=== PATIENT | male | born 1960 | race Caucasian/White ===

== ENCOUNTER 2017-07-27 08:10 | Emergency (ER) | payer OTHER ==
--- NOTE | 2017-07-27 09:25 | RAD ---
HISTORY: Lt knee injury Friday COMPARISONS: None VIEWS: 4, Frontal, lateral, axial, and oblique views of the left knee FINDINGS: BONE DENSITY: Normal. BONES: There is no displaced fracture. There is a superior patellar enthesophyte. JOINTS: There is no arthropathy. There is no suprapatellar joint effusion or lipohemarthrosis. ALIGNMENT: There is no dislocation. SOFT TISSUES: Unremarkable. OTHER FINDINGS: None. IMPRESSION: NO ACUTE OSSEOUS INJURY. IF SYMPTOMS PERSIST, RECOMMEND REPEAT IMAGING.
--- NOTE | 2017-07-27 09:46 | ED ---
Lower Extremity - HPI Summary HPI Summary: Pt here w/ Lt knee pain, swelling and instability since falling Friday. He was attempting to separate his 2 dogs who accidentally got their collars tangled and in the mix, he fell, twisting his knee. Does not recall the details but has had issues since. Has tried rest, ice, elevation and ibuprofen w/o improvement he was hoping to see at this point as he has h/o ankle sprains and typically recovers with methods mentioned above. Denies numbness, tingling, weakness but is not bearing weight well. - History of Current Complaint Chief Complaint: EDExtremityLower Stated Complaint: FALL/LT LEG INJURY Time Seen by Provider: 07/27/17 08:22 Hx Obtained From: Patient, Family/Foil Spinner - Pain Intensity: 1 - Allergies/Home Medications Allergies/Adverse Reactions: Allergies Allergy/AdvReac Type Severity Reaction Status Date / Time Seasonal Allergies Allergy Eyes Uncoded 07/31/17 12:26 Itchy/Swollen/Red/Watery PMH/Surg Hx/FS Hx/Imm Hx Previously Healthy: Yes Endocrine/Hematology History: Denies: Hx Anticoagulant Therapy, Hx Blood Disorders, Hx Diabetes Cardiovascular History: Reports: Hx Hypercholesterolemia, Hx Hypertension - ON MEDS Denies: Hx Pacemaker/ICD Respiratory History: Reports: Hx Seasonal Allergies History: Denies: Hx Renal Disease Musculoskeletal History: Reports: Other Musculoskeletal History - Cervical Injury; ankle sprains Sensory History: Reports: Hx Contacts or Glasses Denies: Hx Hearing Aid Opthamlomology History: Reports: Hx Contacts or Glasses Neurological History: Reports: Hx Spinal Cord Injury - Cervical Compression Fractures Psychiatric History: Denies: Hx Panic Disorder - Surgical History Surgery Procedure, Year, and Place: GALLBLADDER, APPENDIX Infectious Disease History: No Infectious Disease History: Denies: Traveled Outside the [place] in Last 30 Days - Family History Known Family History: Positive: None - Social History Lives: With Family Alcohol Use: Daily Alcohol Amount: 1-2 glasses of wine Hx Substance Use: No Substance Use Type: Reports: None Hx Tobacco Use: No Smoking Status (MU): Never Smoked Tobacco Have You Smoked in the Last Year: No Review of Systems Constitutional: Negative Negative: Fever, Chills, Fatigue Cardiovascular: Negative Respiratory: Negative Gastrointestinal: Negative Positive: no symptoms reported Positive: Arthralgia, Myalgia, Decreased ROM, Edema Skin: Other - abrasion from fall - healing well Neurological: Negative Psychological: Normal All Other Systems Reviewed And Are Negative: Yes Physical Exam Triage Information Reviewed: Yes Vital Signs On Initial Exam: Initial Vitals Temp Pulse Resp BP Pulse Ox 97.7 F 82 18 174/88 97 07/27/17 08:11 07/27/17 08:11 07/27/17 08:11 07/27/17 08:11 07/27/17 08:11 Vital Signs Reviewed: Yes Appearance: Positive: Well-Appearing, No Pain Distress - at rest seated in wheelchair, Well-Nourished Skin: Positive: Warm, Skin Color Reflects Adequate Perfusion - no erythema, no ecchymosis about Lt knee - no skin breakdown, Dry Head/Face: Positive: Normal Head/Face Inspection Eyes: Positive: Normal ENT: Positive: Hearing grossly normal Respiratory/Lung Sounds: Positive: Breath Sounds Present Cardiovascular: Positive: Pulses are Symmetrical in both Upper and Lower Extremities. Negative: Leg Edema Left, Leg Edema Right Musculoskeletal: Positive: Strength/ROM Intact - hips, ankles, toes, Limited @ - Lt knee limited 2ndry to pain at times in certain positions, Pain @ - Lt knee w/ mild edema compared to Rt; difficult to perform special test but some laxity may be present - no shruthi positive [facility] Neurological: Positive: Normal, Sensory/Motor Intact, Alert, Oriented to Person Place, Time, CN Intact II-III Psychiatric: Positive: Normal Diagnostics - Vital Signs Vital Signs Temp Pulse Resp BP Pulse Ox 07/27/17 08:11 97.7 F 82 18 174/88 97 - Laboratory Lab Statement: Any lab studies that have been ordered have been reviewed, and results considered in the medical decision making process. Lower Extremity Course/Dx - Course Course Of Treatment: XR: no acute findings. Enthesophyte present (chronic). Suspect sprain - f/u w/ ortho - Diagnoses Provider Diagnoses: Left knee sprain Discharge - Sign-Out/Discharge Documenting (check all that apply): Discharge/Admit/Transfer - Discharge Plan Condition: Stable Disposition: HOME Patient Education Materials: Knee Sprain (ED), Crutch Instructions (ED), Knee Immobilizer (ED) Referrals: Madison Wall MD [Medical Doctor] - Additional Instructions: Contact orthopedics tomorrow Use knee immobilizer and crutches in the meantime Rest, ice, elevate and take tylenol as needed for pain as ibuprofen may interfere with your blood pressure medication - check with your PCP - Billing Disposition and Condition Condition: STABLE Disposition: Home
[2017-07-27 10:44] VITALS: BP 147/92
== END 2017-07-27 10:42 | disposition home or self-care (01) ==
LOC: ED 08:10
DX: S83.92XA Sprain of unspecified site of left knee, initial encounter (principal); W19.XXXA Unspecified fall, initial encounter; Y92.9 Unspecified place or not applicable; M25.562 Pain in left knee
CPT/HCPCS: 99282

== ENCOUNTER 2017-08-07 06:32 | Day surgery (SDC) | payer OTHER ==
[~2017-08-07 06:32] MED LIST: Buffered Lidocaine 0.9% SYRIN* 5 ML/SYR SYRINGE INTRADERM ONE; Metoclopramide IV* 5 MG/ML 2 ML VIAL IV SLOW PU ONE; Sodium Citrate/Citric Acid* 15 ML UDC PO ONE
[2017-08-07] MEDS ORDERED: Metoclopramide IV* 5 MG/ML 2 ML VIAL ONE (06:50)
[2017-08-07] MEDS ORDERED: ceFAZolin 1 GM in Dextrose (*) 1 GM/50 ML BAG IVPB ONE (06:51)
[2017-08-07] MEDS ORDERED: Sodium Citrate/Citric Acid* 15 ML UDC ONE (06:51)
[2017-08-07] MEDS ORDERED: ceFAZolin 2 GM PREMIX (*) 2 GM/50 ML BAG IVPB ONE (06:51)
[2017-08-07] MEDS ORDERED: Buffered Lidocaine 0.9% SYRIN* 5 ML/SYR SYRINGE ONE (06:51)
[2017-08-07] MEDS ORDERED: Bupivacaine 0.5% SDV PF* 30ML VIAL ONE (07:19)
[2017-08-07] MEDS ORDERED: fentaNYL* 50 MCG/ML 2 ML VIAL (100 MCG VIAL) ONE ×5 (08:00→11:24)
[2017-08-07] MEDS ORDERED: Midazolam* 1 MG/ML 2 ML VIAL (2 MG) ONE (08:00)
[2017-08-07] MEDS ORDERED: Naloxone* 0.4 MG/ML 1 ML VIAL IV PRN (08:18)
[2017-08-07] MEDS ORDERED: Ondansetron ODT TAB* 4 MG PO PRN (08:18)
[2017-08-07] MEDS ORDERED: oxyCODONE/Acetamin 5/325 MG* TAB PO PRN (08:18)
[2017-08-07] MEDS ORDERED: oxyCODONE TAB* 5 MG TAB PO PRN (08:18)
[2017-08-07] MEDS ORDERED: Acetaminophen IV 1GM/100ML * 1,000 MG/100 ML VIAL IVPB ONE (08:18)
[2017-08-07] MEDS ORDERED: PROCHLORPERAZINE INJ 5 MG/ML 2 ML VIAL IV PRN (08:18)
[2017-08-07] MEDS ORDERED: Lidocaine 2% PF * 5 ML VIAL ONE (08:45)
[2017-08-07] MEDS ORDERED: Propofol* 10 MG/ML 20 ML BTL IV PUSH ONE ×2 (08:45→09:42)
[2017-08-07] MEDS ORDERED: Ketorolac INJ* 30 MG/ML 1 ML VIAL ONE (08:45)
[2017-08-07] MEDS ORDERED: Acetaminophen IV 1GM/100ML * 100 ML ONE (10:17)
[2017-08-07] MEDS ORDERED: HYDROmorphone INJ* 0.5 MG/0.5 ML SYRINGE ONE ×6 (10:27→12:38)
[2017-08-07] MEDS: HYDROmorphone INJ* 0.5 MG/0.5 ML SYRINGE IV PRN ×6 (10:28→12:39)
[2017-08-07] MEDS: fentaNYL* 50 MCG/ML 2 ML VIAL (100 MCG VIAL) IV PRN ×5 (10:33→11:20)
[2017-08-07] MEDS ORDERED: oxyCODONE TAB* 5 MG TAB ONE (10:44)
[2017-08-07 13:04] VITALS: BP 182/78
--- NOTE | 2017-08-07 16:40 | RAD ---
Indication: Left quadriceps tendon repair. 2 views of the left knee demonstrates normal alignment of the patella relative to the femur. There is a brace in place. IMPRESSION: Quadriceps tendon repair with patella located in an appropriate location.
--- NOTE | 2017-08-08 05:44 | OP ---
OPERATIVE REPORT: DATE OF OPERATION: 08/07/17. DATE OF : [birth year]. SURGEON: Marce Barriga MD. INTEGRATED MARKETING MANAGER: JANET Hardy. Ms. Yee did help throughout the procedure with preparation of the leg, wound retraction, manipul ation of the knee and wound closure. ANESTHESIOLOGIST: Dr. Molina. ANESTHESIA: General. PRE-OP DIAGNOSIS: Left quadriceps tendon rupture. POST-OP DIAGNOSIS: Left quadriceps tendon rupture. PROCEDURE PERFORMED: Open left quadriceps tendon repair. TOURNIQUET TIME: 36 minutes. ESTIMATED BLOOD LOSS: 150 cc. COMPLICATIONS: None. SPECIMEN: None. HARDWARE: None. BRIEF HISTORY/INDICATION: Mr. Hough is a 57-year-old gentleman, who had a twist and fall injury to t he left knee within the last 2 weeks when he was caring for his dog. Since that injury, he had inabi lity to straight leg raise and severe pain with ambulation. Eventually, he was seen at [facility] emergency room and diagnosed with the quadriceps tendon rupture. He was sent to my clinic a s an outpatient. We confirmed the diagnosis of distal quadriceps rupture under ultrasound and the pa tient was given different options for treatment. He elected to proceed with surgical repair of the q uad tendon. He understood the risk of surgery, included but were not limited to bleeding, infection, damage to nearby structures, continued pain and need for further surgery, knee stiffness, loss of mo tion, patellar fracture, failure of the repair, extensor lag, stroke, heart attack, blood clot and de ath. He wished to proceed. INTRAOPERATIVE FINDINGS: Intraoperatively, the patient was noted have a near full thickness tear of the distal quadriceps tendon at the superior border of the patella. He had a large amount of tearing along the lateral vastus lateralis, retinaculum as well as the entire medial parapatellar retinaculu m. DESCRIPTION OF PROCEDURE: Mr. Hough was identified in the preanesthesia unit. His left lower extrem ity was marked as the correct operative side. Informed consent was signed and placed in the chart. The patient was taken to the operating room and placed under general anesthesia. A tourniquet was pl aced on the left thigh. The left lower extremity was prepped and draped in the usual sterile fashion. Preop time-out was made to correctly identify the patient's side and site. Appropriate perioperative antibiotics were given within one hour of incision. Tourniquet was inflated and the total tourniquet time for this procedure was 36 minutes. A 10-cm mid line incision was made with a 10 blade and carried down to the extensor mechanism. Medially, the dis tremayne quadriceps rupture was visualized. Pulse lavage, sterile saline was used to copiously irrigate t he ruptured site and the knee joint. A rongeur was used to remove any fibrotic tissue or damaged ten don from the ends of the distal quad tendon and from the superior border of the patella. A bony ridg e was obtained using the rongeur in the proximal patellar fold. Next, a #5 Ethibond was placed in a running, longitudinal fashion using the Krackow suture technique. Three #5 Ethibond were placed long itudinally in the distal quadriceps tendon with the free end left out distally. A 2.8 drill bit was then used to make 2 longitudinal tunnels beneath the patella. [employer] suture passer was used to threa d the suture end through the patellar tunnel. The suture ends were then tied under the appropriate t ension with the knee in extension. Some gentle flexion of the knee show the distal repair was quite sturdy. AP and lateral C-arm views were obtained at this point of the patella to ensure there was no significant patella baja or gian. Satisfactory placement of the patella was determined on AP and la teral views. The knee was copiously irrigated with sterile saline. Tourniquet was turned down at 36 minutes. #5 Ethibond and #1 Vicryl were used to reinforce the repair of the peripatellar retinaculum and soft tis channing along the vastus lateralis. The distal quad repair was also supplemented with some additional #5 Ethibond and #1 Vicryl. The rest of the incision was closed in a layered fashion using 0 and 2-0 Carlos ryl. Skin was closed using running 3-0 Monocryl suture and Dermabond. Sterile Adaptic, 4x4s and Webr il were placed over this. The patient was placed in a IROM brace locked in extension. His anesthesia was reversed without difficulty. He was taken to the PACU in stable condition. Intended weightbear ing will be weightbearing as tolerated with the knee locked in extension in the IROM brace. He will follow up in 2-weeks' time for wound check. He will have aspirin twice a day for DVT prophylaxis. [id number]/[facility] #: [id number]
== END 2017-08-07 13:28 | disposition home or self-care (01) ==
LOC: OR 06:32
PROVIDERS: ATTEND Orthopaedic Surgery Adult Reconstructive Orthopaedic Surgery
DX: S76.112A Strain of left quadriceps muscle, fascia and tendon, initial encounter (principal); X50.0XXA Overexertion from strenuous movement or load, initial encounter; Y93.89 Activity, other specified; Y92.89 Other specified places as the place of occurrence of the external cause; E66.01 Morbid (severe) obesity due to excess calories; Z68.35 Body mass index [BMI] 35.0-35.9, adult; I10 Essential (primary) hypertension; E78.5 Hyperlipidemia, unspecified; K21.9 Gastro-esophageal reflux disease without esophagitis; J30.2 Other seasonal allergic rhinitis
CPT/HCPCS: A9270-GY; J0690; J1170; J1885; J2250; J2704; J2765; J3010

== ENCOUNTER 2019-03-16 09:38 | Day surgery (SDC) | payer BC ==
[~2019-03-16 09:38] MED LIST changes: -Buffered Lidocaine 0.9% SYRIN* 5 ML/SYR SYRINGE INTRADERM ONE; +Buffered Lidocaine 1% SYRIN* 1 ML/SYRINGE INTRADERM ONE; +Lactated Ringers 1000 ML Bag* 1,000 ML IV SCH; -Metoclopramide IV* 5 MG/ML 2 ML VIAL IV SLOW PU ONE; -Sodium Citrate/Citric Acid* 15 ML UDC PO ONE
[2019-03-16] MEDS ORDERED: Lidocaine 2% PF * 5 ML VIAL ONE (11:29)
[2019-03-16] MEDS ORDERED: Propofol* 500 MG/50 ML BTL ONE (11:29)
[2019-03-16] MEDS ORDERED: Naloxone* 0.4 MG/ML 1 ML VIAL IV PRN (12:18)
[2019-03-16] MEDS ORDERED: Propofol* 10 MG/ML 20 ML BTL ONE (12:36)
[2019-03-16 12:43] VITALS: BP 128/70
--- NOTE | 2019-03-16 21:23 | PRO ---
DATE: 03/16/19 - [facility] REFERRING PHYSICIANS: Daniel Stafford; Hunter Cabrera* PROCEDURE: Upper gastrointestinal endoscopy and cautery snare removal, duodenal polyp third portion with clipping and subsequent CLOtest gastric antrum. 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 It was planned to remove this. He denies any change in his health status recently. He is not taking any NSAIDs other than low-dose aspirin. He has used ibuprofen sporadically but not for 2 months he states. Informed consent was obtained including knowledge of possible inability to technically perform the polypectomy and/or bleeding or admission. ENDOSCOPIST: Dr. Bowman. MEDICATIONS: Monitored anesthesia, propofol per Dr. Hebert. FINDINGS: He is a morbidly obese man, tilted up 20 degrees in supine position. EGD: Larynx - not seen. Esophagus - normal with EG junction at 40. There were no abnormalities. Stomach - generally normal mucosa with limited viewed from the cardia, fundus, body, and antrum. Duodenum - patches of white superficial exudates involving the distal bulb and some of the second portion and then in the third portion, there was some mild erythema on the tips of folds. The previously seen polyp well away from the papilla on the opposite wall couple of centimeters more proximal was noted. It was positioned to 7 o'clock and could be easily removed with snare. It was removed with 25 degroot briefly. The polyp was then removed with the retrieval net. Reintubation encountered just minimal amount of blood splatter in the third portion of the duodenum. A clip was applied across the polypectomy site with a 30-degree angle during deployment. Deployment appeared optimal. There was no subsequent bleeding. It actually stopped and the clip was prophylactic given the location and the erythema. Coming out, a CLOtest was taken in the mid gastric body. IMPRESSION: 1. Duodenitis - source unclear and a repeat CLOtest done. 2. Duodenal polyp - removed and retrieved and prophylactic clip placed. The area should be reviewed again in 6 months and then at subsequent longer intervals. Addendum: villous adenoma as planned to recheck in 5 to 6 months Clotest negative [id number]/[facility] #: [id number] [facility]
== END 2019-03-16 12:45 | disposition home or self-care (01) ==
LOC: OR 09:38
PROVIDERS: ATTEND Internal Medicine Gastroenterology
DX: D37.2 Neoplasm of uncertain behavior of small intestine (principal); K29.80 Duodenitis without bleeding; E66.01 Morbid (severe) obesity due to excess calories; Z68.39 Body mass index [BMI] 39.0-39.9, adult; K21.9 Gastro-esophageal reflux disease without esophagitis; I10 Essential (primary) hypertension; G47.33 Obstructive sleep apnea (adult) (pediatric)
CPT/HCPCS: 87077; 88305; J2704

== ENCOUNTER 2019-04-14 07:31 | Inpatient (IN) | payer BC ==
[~2019-04-14 07:31] MED LIST changes: +Dexamethasone IV* 4 MG/ML 1 ML (4 MG) IV SLOW PU ONE; +DiMENhydriNATE IV* 50 MG/ML VIAL IV PUSH PRN; +Famotidine IV* 10 MG/ML 2 ML (20 mg) IV ONE; +Levalbuterol 0.63MG/3ML NEB* UNIT OF USE INH ONE; +Naloxone* 0.4 MG/ML 1 ML VIAL IV PRN; +Ondansetron INJ* 2 MG/ML VIAL IV ONE; +PROCHLORPERAZINE INJ 5 MG/ML 2 ML VIAL IV PRN
--- OUTSIDE RECORDS SUMMARY | 2019-04-14 07:35 | XMS REPORT | Continuity of Care Document ---
:1960 External Reference #:[id number] Author Name Rahul Caceres M.D. (transmitted by agent of provider Chula Isaac) Address [address] [place] [address] Problems Active Problems Provider Date Gastroesophageal reflux disease Eleni Lopez NP Onset: 01/28/2019 Open wound of hip AND thigh with tendon Marce Barriga M.D. 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; Social History Type Date Description Comments Sex Unknown Tobacco Use Start: Unknown Never Smoked Cigarettes Smoking Status Reviewed: 02/19/19 Never Smoked Cigarettes ETOH Use Drinks 1 Alcoholic Beverage Per Day Tobacco Use Start: Unknown Patient has never smoked Recreational Drug Use Never Used Drugs Exercise Type/Frequency Exercises regularly three times weekly Allergies, Adverse Reactions, Alerts Active Allergies Reaction Severity Comments Date NKDA 07/28/2017 Hay Fever 02/17/2019 Medications Active Medications SIG Qnty Indications Ordering Date Provider Viagra Take 1 Tablet By Unknown 100mg Tablets Mouth 30 To 60 Minutes Before [place] as Needed Amlodipine Besylate Take 1 Tablet By Unknown 5mg Mouth Every Day For Tablets Blood Pressure Rosuvastatin Calcium Take 1 Tablet By Unknown Mouth Every Day 10mg Tablets Omeprazole Take 1 Capsule By Unknown 40mg Mouth Every Morning Capsules Atenolol Take 1 Tablet By Unknown 50mg Tablets Mouth Every Day Benazepril HCL 1 by mouth every day Unknown 40mg Tablets Aspirin 81 1 by mouth every day Unknown 81mg Tablets DR Benson HFA Inhale 2 Puffs By Unknown Mouth Every 4 Hours 108(90Base) mcg/Act as Needed Aerosol One Daily For Men 50+ 1 daily Unknown Advanced Men 50+ Tablets Immunizations Description No Information Available Vital Signs Date Vital Result Comment 02/19/2019 9:50am Height 75 inches 6'3" Weight 313.25 lb Heart Rate 64 /min BP Systolic 139 mmHg BP Diastolic 79 mmHg Respiratory Rate 14 /min O2 % BldC Oximetry 96 % BMI (Body Mass Index) 39.1 kg/m2 02/17/2019 2:27pm Height 75 inches 6'3" Weight 314.00 lb with shoes Heart Rate 76 /min BP Systolic 152 mmHg Rue BP Diastolic 80 mmHg Rue BP Systolic Sitting 146 mmHg Lue BP Diastolic Sitting 80 mmHg Lue BP Systolic Standing 144 mmHg Lue BP Diastolic Standing 80 mmHg Lue BP Systolic Lying Down 138 mmHg la repeat sitting BP Diastolic Lying Down 68 mmHg la repeat sitting BMI (Body Mass Index) 39.2 kg/m2 Results Test Acquired Date Facility Test Result H/L Range Note Order 02/19/2019 [facility] Echocardiogram <pending> [address] [place] [address] [phone] Surgical 02/16/2019 [facility] Surgical Pathology SEE RESULT [address] [place] [address] [phone] PDFReport SEE IMAGE Laboratory test 02/16/2019 [facility] Clotest SEE RESULT BELOW [address] [place] [address] [phone] 1 SEE RESULT BELOW Name: JAVAD DACOSTA SR : [address]: Kobe Bowman MD Acct: [id number] Unit: [id number] AGE: 58 Location: [facility] Re02/16/19 SEX: M Status: REG REF SPEC: [id number] JASE: 02/16/19-[address] [facility] [address]: Kobe Bowman MD REQ: [id number] RECD: 02/16/19 STATUS: WIL JONES DR: Daniel Cabrera MD _ ORDERED: LEVEL 4 FINAL DIAGNOSIS Duodenum, biopsy: -- Tubular adenoma. -- No high grade dysplasia or malignancy. CLINICAL HISTORY Gastric bypass POST-OPERATIVE DIAGNOSIS EGD: larynx - symmetric; esophagus - normal esophagogastric 45 cm; minimal looseness - no erosions; stomach - whispy red; mild; no blood; duodenum - bulb; normal; second portion polyps; biopsy (4); conclusions: normal esophagus; gastritis; duodenal polyp ; obesity - sleeve GROSS DESCRIPTION The specimen is received in formalin labeled, Biopsy Duodenal Polyp, and consists of a 1.5 x 0.5 x 0.3 cm aggregate of red-pink irregular to polypoid soft tissue fragments, which is entirely submitted in one cassette. Signed by and Reported on: Edita Huerta MD 02/17/19 1343 END OF REPORT DEPARTMENT OF PATHOLOGY, [address] [place] [address] Ayo Kowalski M.D. Director [facility] # [id number] 2 SEE RESULT BELOW Name: JAVAD DACOSTA SR : [address]: Kobe Bowman MD Acct: [id number] Unit: [id number] AGE: 58 Location: ENDO Re02/16/19 SEX: M Status: REG REF SPEC: [id number] JASE: 02/16/19-[address] [facility] [address]: Kobe Bowman MD REQ: [id number] RECD: 02/16/19 STATUS: URSULA JONES DR: Daniel Stafford MD _ SOURCE: GAS ANTRUM SPDESC: ORDERED: Clotest Procedure Result Reported Site Clotest Final 02/17/19- 08 [facility] Clotest Negative * ML - Main Lab . END OF REPORT DEPARTMENT OF PATHOLOGY, [address] [place] [address] Ayo Kowalski M.D. Director [facility] # [id number] Procedures Date Code Description Status 02/19/2019 08704 ECHO Transthoracic, Real-Time 2D With Doppler And Color Completed Flow 02/17/2019 57381 EKG Tracing & Interpretation Completed 12/16/2018 62977 Sleep Study Unattended,HRT Rate,Oxygen Sat,Resp Completed Effort/Airflow Medical Devices Description No Information Available Encounters Type Date Location Provider Dx Diagnosis Office Visit 02/12/2019 [facility] G47.33 Obstructive sleep 11:30a [facility] Zhu apnea (adult) [facility] (pediatric) E66.9 Obesity, unspecified Z68.38 Body mass index (BMI) 38.0-38.9, adult Office 01/28/2019 [facility] Gastroenter[facility] Eleni K21.9 Gastro-esophageal Visit 9:15a Edita reflux disease [facility] Lopez without esophagitis E66.9 Obesity, unspecified Z01.818 Encounter for other preprocedural examination Z68.36 Body mass index (BMI) 36.0-36.9, adult Office Visit 12/12/2018 9:00a [facility] Pratibha Dubose, R06.83 [facility] E66.9 Obesity, unspecified Z68.36 Body mass index (BMI) 36.0-36.9, adult Office Visit 10/02/2018 10:15a [facility] Marce Barriga, M25.562 Pain in left at [facility].D. knee M25.462 Effusion, left knee M17.12 Unilateral primary osteoarthritis, left knee S76.122D Laceration of left quadriceps musc/fasc/tend, subs Office Visit 09/11/2018 9:15a [facility] Marce Barriga, M25.562 Pain in left at [place] M.D. knee M25.462 Effusion, left knee S76.122D Laceration of left quadriceps musc/fasc/tend, subs Assessments Date Code Description Provider 02/19/2019 K31.7 Polyp of stomach and duodenum Kobe Bowman MD 02/19/2019 R94.31 Abnormal electrocardiogram [ECG] [EKG] [facility] 02/19/2019 R94.31 Abnormal electrocardiogram [ECG] [EKG] Kobe Bowman MD 02/19/2019 Z68.38 Body mass index (BMI) 38.0-38.9, adult Kobe Bowman MD 02/17/2019 R94.31 Electrocardiogram abnormal Rahul Caceres M.D. 02/17/2019 E78.5 Hyperlipidemia Rahul Caceres M.D. 02/17/2019 I10 Benign hypertension Rahul Caceres M.D. 02/17/2019 Z68.38 Body mass index (BMI) 38.0-38.9, adult Rahul Caceres M.D. 02/12/2019 G47.33 Obstructive sleep apnea (adult) [facility] Zhu NP (pediatric) 02/12/2019 E66.9 Obesity, unspecified [facility] Zhu NP 02/12/2019 Z68.38 Body mass index (BMI) 38.0-38.9, adult [facility] Zhu NP 01/28/2019 K21.9 Gastro-esophageal reflux disease Eleni Lopez NP without esophagitis 01/28/2019 E66.9 Obesity, unspecified Eleni Lopez NP 01/28/2019 Z01.818 Encounter for other preprocedural Eleni Lopez NP examination 01/28/2019 Z68.36 Body mass index (BMI) 36.0-36.9, adult Eleni Lopez NP 12/16/2018 G47.33 Obstructive sleep apnea (adult) Pratibha Dubose MD (pediatric) 12/12/2018 R06.83 Snoring Pratibha Dubose MD 12/12/2018 E66.9 Obesity, unspecified Pratibha Dubose MD 12/12/2018 Z68.36 Body mass index (BMI) 36.0-36.9, adult Pratibha Dubose MD 10/02/2018 M25.562 Pain in left knee Marce Barriga M.D. 10/02/2018 M25.462 Effusion, left knee Marce Barriga M.D. 10/02/2018 M17.12 Unilateral primary osteoarthritis, Marce Barriga M.D. left knee 10/02/2018 S76.122D Laceration of left quadriceps muscle, Marce Barriga M.D. fascia and tendon, sub 09/11/2018 M25.562 Pain in left knee Kavya HastingsD. 09/11/2018 M25.462 Effusion, left knee Marce Barriga M.D. 09/11/2018 S76.122D Laceration of left quadriceps muscle, Marce aBrriga M.D. fascia and tendon, sub Plan of Treatment Future Appointment(s):03/18/2019 2:15 pm - Kobe Bowman MD at [facility] Bdemxsnqzmywvqiw05/16/2020 10:30 am - Rahul Caceres M.D. at [facility]05/14/2019 9:30 am - Madison Zhu NP at [facility]03/04/2019 2:15 pm - Kobe Bowman MD at [facility] Lbagludptlpckexz71/10/2020 - Kobe Bowman MDK31.7 Polyp of stomach and duodenumFollow up:3-4 weeks appt in office - to be deferred if cardiac w/u dwtpnehhpA65.31 Abnormal electrocardiogram [ECG] [EKG]Follow up:3-4 weeks appt in office - to be deferred if cardiac w/u [id number] Body mass index (BMI) 38.0-38.9, adultFollow up:3-4 weeks appt in office - to be deferred if cardiac w /u continues Functional Status Description No Information Available Mental Status Description No Information Available Referrals Description No Information Available
--- OUTSIDE RECORDS SUMMARY | 2019-04-14 07:35 | XMS REPORT | Continuity of Care Document ---
:1960 External Reference #:[id number] Author Name Rahul Caceres M.D. (transmitted by agent of provider Kristy Taylor ) Address [address] [facility] [address] [place] [address] Problems Active Problems Provider Date Gastroesophageal reflux disease Eleni Lopez NP Onset: 01/28/2019 Open wound of hip AND thigh with tendon Marce Barriga M.D. Onset: 07/28/2017 involvement Obesity Eleni Lpoez NP Onset: 01/28/2019 Obstructive sleep apnea syndrome Eleni Lopez NP Onset: 01/28/2019 Social History Type Date Description Comments Sex Unknown Tobacco Use Start: Unknown Never Smoked Cigarettes Smoking Status Reviewed: 02/17/19 Never Smoked Cigarettes ETOH Use Currently consumes 14 drinks a week alcohol per Pt. Tobacco Use Start: Unknown Patient has never smoked Recreational Drug Use Never Used Drugs Exercise Type/Frequency Exercises regularly three times weekly Allergies, Adverse Reactions, Alerts Active Allergies Reaction Severity Comments Date NKDA 07/28/2017 Hay Fever 02/17/2019 Medications Active Medications SIG Qnty Indications Ordering Date Provider Viagra Take 1 Tablet By Unknown 100mg Tablets Mouth 30 To 60 Minutes Before [place] as Needed Amlodipine Besylate Take 1 Tablet By Unknown 5mg Mouth Every Day For Tablets Blood Pressure Rosuvastatin Calcium Take 1 Tablet By Unknown Mouth Every Day 10mg Tablets Omeprazole Take 1 Capsule By Unknown 40mg Mouth Every Morning Capsules DR Atenolol Take 1 Tablet By Unknown 50mg Tablets Mouth Every Day Benazepril HCL 1 by mouth every day Unknown 40mg Tablets Aspirin 81 1 by mouth every day Unknown 81mg Tablets DR Benson HFMarybeth Inhale 2 Puffs By Unknown Mouth Every 4 Hours 108(90Base) mcg/Act as Needed Aerosol One Daily For Men 50+ 1 daily Unknown Advanced Men 50+ Tablets Immunizations Description No Information Available Vital Signs Date Vital Result Comment 02/17/2019 2:27pm Height 75 inches 6'3" Weight 314.00 lb with shoes Heart Rate 76 /min BP Systolic 152 mmHg Rue BP Diastolic 80 mmHg Rue BP Systolic Sitting 146 mmHg Lue BP Diastolic Sitting 80 mmHg Lue BP Systolic Standing 144 mmHg Lue BP Diastolic Standing 80 mmHg Lue BMI (Body Mass Index) 39.2 kg/m2 02/12/2019 9:07am Height 75 inches 6'3" Weight 310.25 lb Heart Rate 70 /min BP Systolic Sitting 120 mmHg Lue large cuff BP Diastolic Sitting 70 mmHg Lue large cuff O2 % BldC Oximetry 95 % On Ra BMI (Body Mass Index) 38.8 kg/m2 Results Test Acquired Date Facility Test Result H/L Range Note Surgical 02/16/2019 [facility] Surgical SEE RESULT [address] [place] [address] [phone] PDFReport SEE IMAGE Laboratory test 02/16/2019 [facility] Clotest SEE RESULT BELOW [address] [place] [address] [phone] 1 SEE RESULT BELOW Name: PRANEETH SRJAVAD Margaux : [address]: Kobe Bomwan MD Acct: [id number] Unit: [id number] AGE: 58 Location: ENDO Re02/16/19 SEX: M Status: REG REF SPEC: [id number] JASE: 02/16/19-[address] [facility] [address]: Kobe Bowman MD REQ: [id number] RECD: 02/16/19 STATUS: WIL JONES DR: Daniel [...] 1343 END OF REPORT DEPARTMENT OF PATHOLOGY, [address] [place] [address] Ayo Kowalski M.D. Director [facility] # [id number] 2 SEE RESULT BELOW Name: JAVAD DACOSTA SR : [address]: Kobe Bowman MD Acct: [id number] Unit: [id number] AGE: 58 Location: ENDO Re02/16/19 SEX: M Status: REG REF SPEC: [id number] JASE: 02/16/19-[address] [facility] [address]: Kobe Bowman MD REQ: [id number] RECD: 02/16/19 STATUS: URSULA JONES DR: Daniel Stafford MD _ SOURCE: GAS ANTRUM SPDESC: ORDERED: Clotest Procedure Result Reported Site Clotest Final 02/17/19- 805 ML Clotest Negative * ML - Main Lab . END OF REPORT DEPARTMENT OF PATHOLOGY, [address] [place] [address] Ayo Kowalski M.D. Director [facility] # [id number] Procedures Date Code Description Status 02/17/2019 97230 EKG Tracing & Interpretation Completed 12/16/2018 17948 Sleep Study Unattended,HRT Rate,Oxygen Sat,Resp Completed Effort/Airflow Medical Devices Description No Information Available Encounters Type Date Location Provider Dx Diagnosis Office Visit 02/12/2019 [facility] G47.33 Obstructive sleep 11:30a [facility] apnea (adult) [facility] (pediatric) E66.9 Obesity, unspecified Z68.38 Body mass index (BMI) 38.0-38.9, adult Office 01/28/2019 [facility] Gastroenterology Eleni K21.9 Gastro-esophageal Visit 9:15a Edita reflux disease [facility] Lopez without esophagitis E66.9 Obesity, unspecified Z01.818 Encounter for other preprocedural examination Z68.36 Body mass index (BMI) 36.0-36.9, adult Office Visit 12/12/2018 9:00a [facility] Pratibha Dubose, R06.83 [facility] E66.9 Obesity, unspecified Z68.36 Body mass index (BMI) 36.0-36.9, adult Office Visit 10/02/2018 10:15a [facility] Marceotto Barriga, M25.562 [facility] M25.462 Effusion, left knee M17.12 Unilateral primary osteoarthritis, left knee S76.122D Laceration of left quadriceps musc/fasc/tend, subs Office Visit 09/11/2018 9:15a [facility] Marce Barriga, M25.562 [facility] M25.462 Effusion, left knee S76.122D Laceration of left quadriceps musc/fasc/tend, subs Assessments Date Code Description Provider 02/17/2019 R94.31 Electrocardiogram abnormal Rahul Caceres M.D. [...] sub 09/11/2018 M25.562 Pain in left knee Marce Barriga M.D. 09/11/2018 M25.462 Effusion, left knee Marce Barriga M.D. 09/11/2018 S76.122D Laceration of left quadriceps muscle, Marce Barriga M.D. fascia and tendon, sub Plan of Treatment Future Appointment(s):02/19/2019 8:00 am - [place] [facility] Schedule at [facility]05/14/2019 9:30 am - [place] Zhu NP at [facility]03/04/2019 2:15 pm - Kobe Bowman MD at [facility] Cckkimybjwpselly47/08/2020 - Rahul Caceres M.D.R94.31 Electrocardiogram abnormalNew Orders:Echocardiogram, Scheduled: 02/19/19[facility] Nuclear Myoview, Ordered: 02/17/19E78.5 OscptufzvnrgeiO42 Benign xtzphvneegkxO64.38 Body mass index (BMI) 38.0-38.9, adult Functional Status Description No Information Available Mental Status Description No Information Available Referrals Description No Information Available
--- OUTSIDE RECORDS SUMMARY | 2019-04-14 07:35 | XMS REPORT | Continuity of Care Document ---
:1960 External Reference #:[id number] Author Name Kobe Bowman MD (transmitted by agent of provider Juany Wilde) Address [address] [place] [address] Problems Active Problems Provider Date Gastroesophageal reflux disease Eelni Lopez NP Onset: 01/28/2019 Open wound of [...] Tablets Mouth 30 To 60 Minutes Before [place] as Needed Amlodipine Besylate Take 1 Tablet [...] mouth every day Unknown 81mg Tablets DR Ventolin HFA Inhale 2 Puffs By Unknown Mouth [...] Test Result H/L Range Note Order 02/19/2019 [facility] Echocardiogram <pending> [address] [facility] [address] [place] [address] [phone] Surgical 02/16/2019 [facility] Surgical Pathology SEE RESULT [address] [place] [address] [phone] PDFReport SEE IMAGE Laboratory test 02/16/2019 [facility] Clotest SEE RESULT BELOW [address] [place] [address] [phone] 1 SEE RESULT BELOW Name: JAVAD DACOSTA SR : [address]: Kobe Bowman MD Acct: [id number] Unit: [id number] AGE: 58 Location: ENDO Re02/16/19 SEX: M Status: REG REF SPEC: [id number] JASE: 02/16/19-[address] [facility] [address]: Kobe Bowman MD REQ: [id number] RECD: 02/16/19 STATUS: WIL JONES DR: Daniel [...] 1343 END OF REPORT DEPARTMENT OF PATHOLOGY, [address] [place] [address] Ayo Kowalski M.D. Director [facility] # [id number] 2 SEE RESULT BELOW Name: JAVAD DACOSTA SR : [address]: Kobe Bowman MD Acct: [id number] Unit: [id number] AGE: 58 Location: ENDO Re02/16/19 SEX: M Status: REG REF SPEC: [id number] JASE: 02/16/19-[address]: Kobe Bowman MD REQ: [id number] RECD: 02/16/19-1722 STATUS: URSULA ELIASHR DR: Daniel Stafford MD _ SOURCE: GAS ANTRUM SPDESC: ORDERED: Clotest Procedure Result Reported Site Clotest Final 02/17/19- 805 ML Clotest Negative * ML - Main Lab . END OF REPORT DEPARTMENT OF PATHOLOGY, [address] [place] [address], [place] [address] Ayo Kowalski M.D. Director [facility] # [id number] Procedures Date Code Description Status 02/19/2019 17044 ECHO Transthoracic, Real-Time 2D With Doppler And Color Completed Flow 02/17/2019 80767 EKG Tracing & Interpretation Completed 12/16/2018 09299 Sleep Study Unattended,HRT Rate,Oxygen Sat,Resp Completed Effort/Airflow Medical Devices Description No Information Available Encounters Type Date Location Provider Dx Diagnosis Office Visit 02/19/2019 [facility] Gastroenterology Kobe Guillen K31.7 Polyp of stomach 10:15a MD [place] and duodenum R94.31 Abnormal electrocardiogram [ECG] [EKG] Z68.38 Body mass index (BMI) 38.0-38.9, adult Office Visit 02/12/2019 [facility] G47.33 Obstructive sleep 11:30a [facility] apnea (adult) [facility] (pediatric) E66.9 Obesity, unspecified Z68.38 Body mass index (BMI) 38.0-38.9, adult Office 01/28/2019 [facility] Gastroenterology Eleni K21.9 Gastro-esophageal Visit 9:15a Edita reflux disease SHAR[facility] Lopez without esophagitis E66.9 Obesity, unspecified Z01.818 Encounter for other preprocedural examination Z68.36 Body mass index (BMI) 36.0-36.9, adult Office Visit 12/12/2018 9:00a [facility] Pratibha Dubose, R06.83 [facility] E66.9 Obesity, unspecified Z68.36 Body mass index (BMI) 36.0-36.9, adult Office Visit 10/02/2018 10:15a [facility] Marce Barriga, M25.562 Pain in left at [place] M.D. knee M25.462 Effusion, left knee M17.12 Unilateral primary osteoarthritis, left knee S76.122D Laceration of left quadriceps musc/fasc/tend, subs Office Visit 09/11/2018 9:15a [facility] Marce Barriga, M25.562 Pain in left at [place] M.DJena knee M25.462 Effusion, left knee S76.122D Laceration [...] 2:15 pm - Kobe Bowman MD at [facility] Jzlqvrkznricdcsb51/16/2020 10:30 am - Rahul Caceres M.D. at [facility]05/14/2019 9:30 am - [place] Zhu NP at [facility]03/04/2019 2:15 pm - Kobe Bowman MD at [facility] Owjqpqrfxsaswbrp00/10/2020 - Kobe Bowman MDK31.7 Polyp of stomach and duodenumFollow up:3-4 weeks appt in rqzkrsS90.31 Abnormal electrocardiogram [ECG ] [EKG]Follow up:3-4 weeks appt in kpwuhsV84.38 Body mass index (BMI) 38.0-38.9 , adultFollow up:3-4 weeks appt in office Functional Status Description No Information Available Mental Status Description No Information Available Referrals Description No Information Available
--- OUTSIDE RECORDS SUMMARY | 2019-04-14 07:35 | XMS REPORT | Continuity of Care Document ---
:1960 External Reference #:[id number] Author Name Kobe Bowman MD (transmitted by agent of provider Tyrese Ortiz) Address [address] [place] [address] Problems Active Problems Provider Date Gastroesophageal reflux [...] Unknown Never Smoked Cigarettes Smoking Status Reviewed: 03/04/19 Never Smoked Cigarettes ETOH Use Drinks 1 Alcoholic Beverage Per Day Tobacco Use Start: Unknown Patient has never smoked Recreational Drug Use Never Used Drugs Exercise Type/Frequency Exercises regularly three times weekly Allergies, Adverse Reactions, Alerts Active Allergies Reaction Severity Comments Date NKDA 07/28/2017 Hay Fever 02/17/2019 Medications Active Medications SIG Qnty Indications Ordering Date Provider Amlodipine Besylate Take 1 Tablet By Unknown 05/01/2013 5mg Mouth Every Day For Tablets Blood Pressure Benazepril HCL 1 by mouth every day Unknown 04/20/2013 40mg Tablets Atenolol Take 1 Tablet By Unknown 02/12/2011 50mg Tablets Mouth Every Day Rosuvastatin Calcium Take 1 Tablet By Unknown 03/23/2009 Mouth Every Day 10mg Tablets Omeprazole Take 1 Capsule By Unknown 03/23/2009 40mg Mouth Every Morning Capsules Aspirin 81 1 by mouth every day Unknown 05/21/2005 81mg Tablets Viagrdavid Take 1 Tablet By Unknown 100mg Tablets Mouth 30 To 60 Minutes Before [place] as Needed Ventolin HFA Inhale 2 Puffs By Unknown Mouth Every 4 Hours 108(90Base) mcg/Act as Needed Aerosol One Daily For Men 50+ 1 daily Unknown Advanced Men 50+ Tablets Immunizations Description No Information Available Vital Signs Date Vital Result Comment 03/04/2019 2:43pm Height 75 inches 6'3" Weight 315.50 lb Heart Rate 64 /min BP Systolic 138 mmHg BP Diastolic 76 mmHg Respiratory Rate 18 /min O2 % BldC Oximetry 96 % BMI (Body Mass Index) 39.4 kg/m2 02/19/2019 9:50am Height 75 inches 6'3" Weight 313.25 lb Heart Rate 64 /min BP Systolic 139 mmHg BP Diastolic 79 mmHg Respiratory Rate 14 /min O2 % BldC Oximetry 96 % BMI (Body Mass Index) 39.1 kg/m2 Results Test Acquired Date Facility Test Result H/L Range Note Surgical 02/16/2019 [facility] Surgical SEE RESULT [address] [place] [address] [phone] PDFReport SEE IMAGE Laboratory test 02/16/2019 [facility] Clotest SEE RESULT BELOW [address] [place] [address] [phone] 1 SEE RESULT BELOW Name: JAVAD DACOSTA SR : [address]: Kobe Bowman MD Acct: [id number] Unit: [id number] AGE: 58 Location: ENDO Re02/16/19 SEX: M Status: REG REF SPEC: [id number] JASE: 02/16/19-1555 [facility] DR: Kobe Bowman MD REQ: [id number] RECD: 02/16/198244 STATUS: WIL JONES DR: Daniel Caberra MD _ ORDERED: LEVEL 4 FINAL DIAGNOSIS [...] 1343 END OF REPORT DEPARTMENT OF PATHOLOGY, [address] [place] [address] Ayo Kowalski M.D. Director [facility] # [id number] 2 SEE RESULT BELOW Name: PRANEETH BROWN,JAVAD Damico : [address]: Kobe Bowman MD Acct: [id number] Unit: [id number] AGE: 58 Location: ENDO Re02/16/19 SEX: M Status: REG REF SPEC: [id number] JASE: 02/16/19-1522 [facility] DR: Kobe Bowman MD REQ: [id number] RECD: 02/16/19 STATUS: URSULA JONES DR: Daniel Stafford MD _ SOURCE: GAS ANTRUM SPDESC: ORDERED: Clotest Procedure Result Reported Site Clotest Final 02/17/19- 0806 ML Clotest Negative * ML - Main Lab . END OF REPORT DEPARTMENT OF PATHOLOGY, [address], [place], [place] [address] Ayo Kowalski M.D. Director [facility] # [id number] Procedures Date Code Description Status 02/25/2019 38063 Treadmill Interp/Report Only Completed 02/25/2019 08694 Stress Test Supervsn W/Out I/R Completed 02/19/2019 48267 ECHO Transthoracic, Real-Time 2D With Doppler And Color Completed Flow 02/19/2019 45229 ECHO Transthoracic, Real-Time 2D With Doppler And Color Completed Flow 02/17/2019 86789 EKG Tracing & Interpretation Completed 12/16/2018 04249 Sleep Study Unattended,HRT Rate,Oxygen Sat,Resp Completed Effort/Airflow Medical Devices Description No Information Available Encounters Type Date Location Provider Dx Diagnosis Office Visit 02/19/2019 [facility] Gastroenterology Kobe Guillen K31.7 Polyp of stomach 10:15a MD [place] and duodenum R94.31 Abnormal electrocardiogram [ECG] [EKG] Z68.38 Body mass index (BMI) 38.0-38.9, adult Office Visit 02/17/2019 Kylah oJhnson R94.31 Abnormal 3:00p Cardiology Do Caceres electrocardiogram [ECG] [EKG] E78.5 Hyperlipidemia, unspecified I10 Essential (primary) hypertension Z01.810 Encounter for preprocedural cardiovascular examination I51.7 Cardiomegaly Office Visit 02/12/2019 [facility] [place] G47.33 Obstructive sleep 11:30a [facility] apnea (adult) [facility] (pediatric) E66.9 Obesity, unspecified Z68.38 Body mass index (BMI) 38.0-38.9, adult Office 01/28/2019 [facility] Gastroenterology Eleni K21.9 Gastro-esophageal Visit 9:15a Edita reflux disease SHARON Lopez without esophagitis E66.9 Obesity, unspecified Z01.818 Encounter for other preprocedural examination Z68.36 Body mass index (BMI) 36.0-36.9, adult Office Visit 12/12/2018 9:00a [facility] Pratibha Dubose, R06.83 [facility] E66.9 Obesity, unspecified Z68.36 Body mass index (BMI) 36.0-36.9, adult Office Visit 10/02/2018 10:15a [facility] Marce Linus, M25.562 Pain in left at [place] M.D. knee M25.462 Effusion, left knee M17.12 Unilateral primary osteoarthritis, left knee S76.122D Laceration of left quadriceps musc/fasc/tend, subs Office Visit 09/11/2018 9:15a [facility] Marce Weldonke, M25.562 Pain in left at [facility].D. knee M25.462 Effusion, left knee S76.122D Laceration of left quadriceps musc/fasc/tend, subs Assessments Date Code Description Provider 03/04/2019 K31.7 Polyp of stomach and duodenum Kobe Bowman MD 03/04/2019 K21.9 Gastro-esophageal reflux disease Kobe Bowman MD without esophagitis 03/04/2019 E66.9 Obesity, unspecified Kobe Bowman MD 03/04/2019 I10 Benign hypertension Kobe Bowman MD 03/04/2019 G47.33 Obstructive sleep apnea (adult) Kobe Bowman MD (pediatric) 02/19/2019 R94.31 Abnormal electrocardiogram [ECG] [EKG] Rahul Caceres M.D. 02/19/2019 K31.7 Polyp of stomach and duodenum Kobe Bowman MD 02/19/2019 R94.31 Abnormal electrocardiogram [ECG] [EKG] [place] [facility] Schedule 02/19/2019 I10 Benign hypertension [place] [facility] Schedule 02/19/2019 R94.31 Abnormal electrocardiogram [ECG] [EKG] Kobe Bowman MD 02/19/2019 G47.33 Obstructive sleep apnea (adult) [place] [facility] Schedule (pediatric) 02/19/2019 Z68.38 Body mass index (BMI) 38.0-38.9, adult Kobe Bowman MD 02/17/2019 R94.31 Electrocardiogram abnormal Rahul Caceres M.D. 02/17/2019 E78.5 Hyperlipidemia Rahul Caceres M.D. 02/17/2019 I10 Benign hypertension Rahul Caceres M.D. 02/17/2019 Z01.810 Encounter for preprocedural Rahul Caceres M.D. cardiovascular examination 02/17/2019 I51.7 Cardiomegaly Rahul Caceres M.D. 02/12/2019 G47.33 Obstructive sleep [...] and tendon, sub Plan of Treatment Future Appointment(s):05/14/2019 9:30 am - [place] Zhu, [employer] at [facility]03/04/2019 - Kobe Bowman MDK31.7 Polyp of stomach and duodenumNew Orders:EGD, Ordered: 03/04/19Follow up:Will ask for anesthesia assistance as duration of procedure less predictable - to include retrieval.He will continue aspirin.K21.9 Gastro-esophageal reflux disease without esophagitisFollow up:Will ask for anesthesia assistance as duration of procedure less predictable - to include retrieval.He will continue aspirin.E66.9 Obesity, unspecifiedFollow up:Will ask for anesthesia assistance as duration of procedure less predictable - to include retrieval.He will continue aspirin.I10 Essential (primary) hypertensionFollow up:Will ask for anesthesia assistance as duration of procedure less predictable - to include retrieval.He will continue aspirin.G47.33 Obstructive sleep apnea (adult) ( pediatric)Follow up:Will ask for anesthesia assistance as duration of procedure less predictable - to include retrieval.He will continue aspirin. Functional Status Description No Information Available Mental Status Description No Information Available Referrals Description No Information Available
[2019-04-14] MEDS ORDERED: Bupivacaine 0.25% SDV* 30 ML ONE (08:11)
[2019-04-14] MEDS ORDERED: Bupivacaine 0.5% W/EPI SDV* 30 ML VIAL ONE (08:11)
[2019-04-14] MEDS ORDERED: Heparin VIAL(*) 5000 UNITS/ML VIAL (FIVE THOUSAND) ONE (08:22)
[2019-04-14] MEDS ORDERED: Ondansetron INJ* 2 MG/ML VIAL ONE (08:23)
[2019-04-14] MEDS ORDERED: Famotidine IV* 10 MG/ML 2 ML (20 mg) ONE (08:23)
[2019-04-14] MEDS ORDERED: ceFAZolin 2 GM in NS PREMIX(*) 2 GM/100 ML BAG IVPB ONE (08:23)
[2019-04-14] MEDS ORDERED: ceFAZolin 1 GM ADVAN(*) 1 GM ADDV.VIAL IVPB ONE (08:23)
[2019-04-14] MEDS ORDERED: Dexamethasone IV* 4 MG/ML 1 ML (4 MG) ONE (08:23)
[2019-04-14] MEDS ORDERED: Levalbuterol 0.63MG/3ML NEB* UNIT OF USE INH ONE (08:23)
[2019-04-14] MEDS ORDERED: KETAMINE HCL* 50 MG/ML 10 ML VIAL ONE (08:26)
[2019-04-14] MEDS ORDERED: fentaNYL* 50 MCG/ML 5 ML VIAL (250 MCG VIAL) ONE (08:26)
[2019-04-14] MEDS ORDERED: Midazolam* 1 MG/ML 5 ML VIAL (5 MG) ONE (08:26)
[2019-04-14] MEDS ORDERED: Rocuronium* 10 MG/ML VIAL ONE (08:26)
[2019-04-14] MEDS ORDERED: Labetalol IV* 5 MG/ML 20 ML VIAL ONE (09:04)
[2019-04-14] MEDS ORDERED: Sugammadex * 200 MG/2 ML VIAL IV PUSH ONE ×2 (10:21→11:15)
[2019-04-14] MEDS ORDERED: Propofol* 10 MG/ML 20 ML BTL ONE (10:21)
[2019-04-14] MEDS ORDERED: Acetaminophen IV 1GM/100ML * 100 ML ONE (10:21)
[2019-04-14] MEDS ORDERED: Lidocaine 2% PF * 5 ML VIAL ONE (10:21)
[2019-04-14] MEDS ORDERED: Phenylephrine 40 MCG/ML SYRINGE ONE (10:21)
[2019-04-14] MEDS ORDERED: HYDROmorphone INJ1* 1 MG/ML SYRINGE ONE ×2 (10:52→12:07)
--- NOTE | 2019-04-14 11:22 | BRIEFOPN ---
Brief Operative/Procedure Note - Operation Details Pre-Op Diagnosis: morbid obesity Post-Op Diagnosis: same Procedures: laparoscopic sleeve gastrectomy Surgeon(s)/Proceduralists: Rick. Assist: JANET Molina Anesthesia: GET. Fluids: 1500 ml RL Estimated Blood Loss: < 50 ml Findings: as above Specimen(s)/Culture(s) Description: portion of stomach Complications: none
[2019-04-14] MEDS ORDERED: HYDROmorphone INJ* 0.5 MG/0.5 ML SYRINGE IV SLOW PU PRN (11:24)
[2019-04-14] MEDS ORDERED: Acetaminophen ADULT LIQ* 650 MG/20.3 ML UDC PO PRN (11:24)
[2019-04-14] MEDS ORDERED: HYDROcodone/ACET. 7.5/325 LIQ* 15 ML UDC PO PRN (11:24)
[2019-04-14] MEDS ORDERED: HYDROmorphone INJ1* 1 MG/ML SYRINGE IV SLOW PU PRN (11:24)
[2019-04-14] MEDS ORDERED: Ondansetron INJ* 2 MG/ML VIAL IV PRN (11:24)
[2019-04-14] MEDS ORDERED: Albuterol HFA INHALER* 8 gm MDI INH PRN (11:28)
[2019-04-14] MEDS ORDERED: fentaNYL* 50 MCG/ML 2 ML VIAL (100 MCG VIAL) ONE ×2 (11:43→12:46)
[2019-04-14] MEDS: fentaNYL* 50 MCG/ML 2 ML VIAL (100 MCG VIAL) IV PRN ×4 (11:44→13:04)
[2019-04-14] MEDS: HYDROmorphone INJ1* 1 MG/ML SYRINGE IV PRN ×3 (12:08→12:32)
[2019-04-14] MEDS ORDERED: hydrALAZINE IV* 20 MG/ML VIAL ONE (12:42)
[2019-04-14] MEDS: Lactated Ringers 1000 ML Bag* 1,000 ML IV SCH ×2 (14:01→21:14)
[2019-04-14] MEDS: Ketorolac INJ* 30 MG/ML 1 ML VIAL IV SCH ×2 (14:05→21:33)
[2019-04-14] MEDS: Metoprolol Tartrate IV* 1 MG/ML 5 ML VIAL IV SCH ×2 (14:32→21:33)
[2019-04-14] MEDS: Heparin VIAL(*) 5000 UNITS/ML VIAL (FIVE THOUSAND) SUBCUT SCH (21:33)
[2019-04-14] MEDS: Famotidine IV* 10 MG/ML 2 ML (20 mg) IV SLOW PU SCH (21:33)
--- NOTE | 2019-04-15 03:20 | OP ---
CC: Primary Care Doctor; [facility]; Dr. Kobe Bowman OPERATIVE REPORT: DATE OF OPERATION: 04/14/19 DATE OF : 64 SURGEON: Hunter Cabrera MD SOFTWARE DEVELOPER MID LEVEL: JANET Thomas ANESTHESIOLOGIST: Dr. Saavedra. ANESTHESIA: General anesthesia. PRE-OP DIAGNOSIS: Clinically severe obesity. POST-OP DIAGNOSIS: Clinically severe obesity. OPERATIVE PROCEDURE: Laparoscopic sleeve gastrectomy. ESTIMATED BLOOD LOSS: Minimal, less than 50 cc. FLUIDS: 1500 cc of crystalloid fluid given. SPECIMEN: Portion of stomach. COMPLICATIONS: None. DRAINS: None. DESCRIPTION OF PROCEDURE: The patient was identified in the preoperative area. He was brought to OR , placed on the operating table in supine position. Preoperative antibiotics were given. Sequential devices placed on bilateral lower extremities. General anesthesia was induced. The patient's abdome n was prepped and draped in standard surgical fashion and a time-out was performed. Folds of the umbilicus were elevated anteriorly and a Veress needle inserted into the abdominal cavit y, which was then allowed to insufflate to a pressure of 15 mmHg. The patient tolerated the insuffla tion well. [place] between xiphoid and umbilicus, just left of mid line, a 12 mm optical trocar was i nserted. The laparoscope was inserted through this. There was no evidence of injuries from the troc ar insertion or from the Veress needle, which was then removed. Additional trocars were then placed in the following position: Two 5 mm along the left upper quadran t and a 12 mm at the right upper quadrant. Review of the abdomen showed no bleeding. The Veress nee dle had been removed. There was no evidence of injury to adjacent organs. There was no free fluid. Liver appeared normal size. Table was placed in a steep reverse Trendelenburg and then a Anabel r etractor was inserted through a subxiphoid incision and the liver was retracted anteriorly to the rig ht. The gastroesophageal fat pad was exposed. This was grasped and retracted to his right lower quadrant . Blunt dissection was carried out to expose the left crura. The gastroesophageal fat pad was then s wept medially with both sharp and blunt dissection. There was no evidence of a hiatal hernia. Next, a retrogastric tunnel was made at 5 cm proximal to the pylorus on the greater curvature and wit h LigaSure device, we took the vasculature to the greater curvature up to the angle of His at the are a of initial dissection. Posterior attachments were taken as well. There was a minimal puckering po steriorly with posterior fat pad. This was grasped and reduced and it showed dimpling of approximate ly 1 mm. I opened up the pars flaccida and exposed the right crura. There appeared to be no signific antly dimpling at this site and and made the decision to discontinue with the procedure. Next, a sleeve stomach was created using 60 mm purple ALBERTO stapling device with the reinforcement stri ps, starting 5 cm from the pylorus extending it towards the incisura. We fired this over 40-[place] b ougie and continued firing as such and staying close to the Bougie right up to our proximal stomach. The specimen was then placed in endoscopic retrieval bag. Review of the posterior site showed no bl eeding. No enteric contents. There is minimal puckering was all we could speak off at the posterior hiatus and I could not even get a grasper along the stomach with this through this area. At this po int, we completed the procedure by taking out the stomach with endoscopic retrieval bag through the r ight upper quadrant port site. We closed the fascial layer with an 0 Vicryl suture using a Wegabino dirk ce. Anabel retractor was removed under direct vision. There was no bleeding. Hemostasis was excel lent. The stapled stomach lay flat with no corkscrewing with a good staple line intact. The trocar was then removed after the abdomen was allowed to collapse and all 5 skin incisions were reapproximat ed with 4-0 Monocryl subcuticular sutures, followed by sterile dressing. [id number]/[facility] #: [id number]
[2019-04-15] MEDS: Lactated Ringers 1000 ML Bag* 1,000 ML IV SCH (04:25)
[2019-04-15] MEDS: Ketorolac INJ* 30 MG/ML 1 ML VIAL IV SCH ×2 (04:36→09:53)
[2019-04-15] MEDS: Metoprolol Tartrate IV* 1 MG/ML 5 ML VIAL IV SCH ×3 (04:36→14:35)
[2019-04-15] MEDS: Heparin VIAL(*) 5000 UNITS/ML VIAL (FIVE THOUSAND) SUBCUT SCH ×2 (05:53→14:34)
[2019-04-15] MEDS: Famotidine IV* 10 MG/ML 2 ML (20 mg) IV SLOW PU SCH (09:15)
[2019-04-15] MEDS ORDERED: D5W 1/2 NS KCl 20 Meq 1000 ML* 1,000 ML IV SCH (11:26)
--- NOTE | 2019-04-15 12:23 | PN ---
Progress Note - Progress Note Date of Service: 04/15/19 SOAP: Subjective: Patient seen and examined. Walking around the ann. No complaints. Positive bowel movements. Positive flatus. No nausea or vomiting, With the exception of one episode yesterday. Objective: Temp Pulse Resp BP Pulse Ox 99 F 68 14 182/86 99 04/15/19 11:01 04/15/19 11:01 04/15/19 11:01 04/15/19 10:28 04/15/19 11:01 Lungs clear abdomen: Soft, nondistended, nontender. Dressings intact. Extremities within normal limits. Upper GI reviewed. Assessment: Postop day 1, sleeve gastrectomy, hemodynamically stable Plan: bariatric diet. Discharge planning
[2019-04-15 15:04] VITALS: BP 152/70
--- NOTE | 2019-04-15 15:16 | DS ---
Admission date: 04/14/2019 Discharge date: 04/15/2019 Admit diagnosis: Obesity Discharge diagnosis: Obesity Procedure performed: Laparoscopic sleeve gastrectomy PEX General: Alert, in NAD or discomfort. Integumentary: No rashes, jaundice, petechia. HEENT: Oropharynx clear. PERRLA. Heart: RRR, no MRG. Lungs: CTAB, no WRR. ABD: BS present. Soft, nondistended. Mild tenderness in epigastrium and surrounding his incisions, which are C/D/I. Extremities: Calves soft and nontender. Distal pulses intact bilaterally. No edema. Hospital course: Admitted for the above named procedure. Tolerated in well and transferred to [facility] for post op care. On POD#1, an upper GI study revealed no anastomotic leak and appropriate passage of dye. He was started on bariatric clear liquids, which was tolerated well. Later in the day, he was tolerating a goal amount of 4 oz per hour of liquids, ambulating without issue, passing flatus, and pain was well controlled. [place] well and ready to go home. Instructions were given to the patient regarding diet, medications, activity, care for incisions, and follow up. All questions were answered. Discharged home in stable condition on 04/15/2019.
== END 2019-04-15 15:20 | disposition home or self-care (01) | DRG 403 ==
LOC: AA 07:31 → SSU 11:25
PROVIDERS: ADMIT Surgery; ATTEND Surgery
PROC: 0DB64Z3 Excision of Stomach, Percutaneous Endoscopic Approach, Vertical (ICD-10-PCS; principal; 2019-04-14 09:30)
DX: E66.01 Morbid (severe) obesity due to excess calories (principal); I10 Essential (primary) hypertension; E78.5 Hyperlipidemia, unspecified; E78.00 Pure hypercholesterolemia, unspecified; M17.0 Bilateral primary osteoarthritis of knee; G47.33 Obstructive sleep apnea (adult) (pediatric); R11.2 Nausea with vomiting, unspecified; R73.03 Prediabetes; K21.9 Gastro-esophageal reflux disease without esophagitis; Z79.899 Other long term (current) drug therapy; Z79.82 Long term (current) use of aspirin; Z68.41 Body mass index [BMI] 40.0-44.9, adult
CPT/HCPCS: 43775; 74246; 88307; A9270-GY; J0360; J0690; J1100; J1170; J1644; J1885; J2250; J2405; J2704; J3010; J3490